=== PATIENT | female | born 1985 | race Caucasian/White ===

== ENCOUNTER 2018-02-17 13:11 | Emergency (ER) | payer BC ==
[2018-02-17 16:32] LABS: ABS Basophils 0.1 10^3/ul (0-0.2); ABS Eosinophils 0 10^3/ul (0-0.6); ABS Lymphocytes 2.4 10^3/ul (1.0-4.8); ABS Monocytes 0.6 10^3/ul (0-0.8); ABS Neutrophils 7.2 10^3/ul (1.5-7.7); ABS Nucleated RBC 0 10^3/ul; Eosinophil % 0.3 % (0-6); Hematocrit 40 % (35-47); Hemoglobin 13.8 g/dl (12.0-16.0); Lymphocyte % 23.1 % (25-47); Mean Corpuscular HGB Conc 34 g/dl (31-36); Mean Corpuscular Hemoglobin 30 pg (27-31); Mean Corpuscular Volume 87 fL (80-97); Mean Platelet Volume 8.6 um3 (7.4-10.4); Nucleated Red Blood Cells % 0.1; Platelet Count 315 10^3/ul (150-450); Red Blood Count 4.64 10^6/ul (4.00-5.40); Red Cell Distribution Width 13 % (10.5-15); White Blood Count 10.3 10^3/ul (3.5-10.8)
[2018-02-17 16:47] LABS: EGFR Non-African American 100.9 (>60)
--- NOTE | 2018-02-17 17:31 | ED ---
Throat Pain/Nasal Congestion - HPI Summary HPI Summary: Patient history of 4-7 weeks by home test, complains of vaginal spotting and intermittent lateral lower abdominal pain starting yesterday. Blood noticed when she is wiping after going to the bathroom, and some spotting on a pad. Denies fever, CP, SOB, vaginal discharge, vaginal pain , urinary symptoms, cough, sore throat. Has had no prior OB evaluation. Has appointment with midwives next month. History of irregular cycles. Medical history is PCO as. Abdominal/pelvic surgical history is none. - History of Current Complaint Chief Complaint: EDOBProblems Time Seen by Provider: 02/17/18 15:39 Hx Obtained From: Patient Onset/Duration: Gradual Onset Severity: Mild Associated Signs And Symptoms: Positive: Negative Cough: None - Allergies/Home Medications Allergies/Adverse Reactions: Allergies Allergy/AdvReac Type Severity Reaction Status Date / Time No Known Allergies Allergy Verified 02/17/18 15:25 Home Medications: Home Medications Metformin HCl 500 mg PO DAILY 02/17/18 [History Confirmed 02/17/18] PMH/Surg Hx/FS Hx/Imm Hx Endocrine/Hematology History: Denies: Hx Anticoagulant Therapy Cardiovascular History: Denies: Hx Cardiac Arrest History: Denies: Hx Dialysis Neurological History: Denies: Hx CVA Infectious Disease History: No Infectious Disease History: Denies: Traveled Outside the [place] in Last 30 Days - Social History Alcohol Use: None Substance Use Type: Reports: None Smoking Status (MU): Never Smoked Tobacco Review of Systems Constitutional: Negative Eyes: Negative ENT: Negative Cardiovascular: Negative Respiratory: Negative Positive: Abdominal Pain Positive: other Musculoskeletal: Negative Skin: Negative Neurological: Negative Positive: Anxious All Other Systems Reviewed And Are Negative: Yes Physical Exam Triage Information Reviewed: Yes Vital Signs On Initial Exam: Initial Vitals Temp Pulse Resp BP Pulse Ox 97.8 F 105 14 147/92 100 02/17/18 13:33 02/17/18 13:33 02/17/18 13:33 02/17/18 13:33 02/17/18 13:33 Vital Signs Reviewed: Yes Appearance: Positive: Well-Appearing Skin: Positive: Warm Head/Face: Positive: Normal Head/Face Inspection Eyes: Positive: Normal Neck: Positive: Supple Respiratory/Lung Sounds: Positive: Clear to Auscultation Cardiovascular: Positive: Normal Abdomen Description: Positive: Nontender Musculoskeletal: Positive: Normal Neurological: Positive: Normal Psychiatric: Positive: Normal AVPU Assessment: Alert - [place] Coma Scale Best Eye Response: 4 - Spontaneous Best Motor Response: 6 - Obeys Commands Best Verbal Response: 5 - Oriented Coma Scale Total: 15 Diagnostics - Vital Signs Vital Signs Temp Pulse Resp BP Pulse Ox 02/17/18 14:57 98.2 F 112 154/93 99 02/17/18 13:33 97.8 F 105 14 147/92 100 - Laboratory Lab Results: Lab Results 02/17/18 02/17/18 02/17/18 Range/Units 16:23 16:23 16:23 WBC 10.3 (3.5-10.8) 10^3/ul RBC 4.64 (4.00-5.40) 10^6/ul Hgb 13.8 (12.0-16.0) g/dl Hct 40 (35-47) % MCV 87 (80-97) fL MCH 30 (27-31) pg MCHC 34 (31-36) g/dl RDW 13 (10.5-15) % Plt Count 315 (150-450) 10^3/ul MPV 8.6 (7.4-10.4) um3 Neut % (Auto) 69.9 (38-83) % Lymph % (Auto) 23.1 L (25-47) % [place] % (Auto) 6.1 (0-7) % Eos % (Auto) 0.3 (0-6) % Baso % (Auto) 0.6 (0-2) % Absolute Neuts (auto) 7.2 (1.5-7.7) 10^3/ul Absolute Lymphs (auto) 2.4 (1.0-4.8) 10^3/ul Absolute Monos (auto) 0.6 (0-0.8) 10^3/ul Absolute Eos (auto) 0 (0-0.6) 10^3/ul Absolute Basos (auto) 0.1 (0-0.2) 10^3/ul Absolute Nucleated RBC 0 10^3/ul Nucleated RBC % 0.1 Sodium 138 (135-145) mmol/L Potassium 4.1 (3.5-5.0) mmol/L Chloride 103 (101-111) mmol/L Carbon Dioxide 24 (22-32) mmol/L Anion Gap 11 (2-11) mmol/L BUN 9 (6-24) mg/dL Creatinine 0.68 (0.51-0.95) mg/dL Est GFR ( Amer) 122.1 (>60) Est GFR (Non-Af Amer) 100.9 (>60) BUN/Creatinine Ratio 13.2 (8-20) Glucose 94 (70-100) mg/dL Calcium 9.7 (8.6-10.3) mg/dL Total Bilirubin 0.40 (0.2-1.0) mg/dL AST 19 (13-39) U/L ALT 28 (7-52) U/L Alkaline Phosphatase 54 (34-104) U/L C-Reactive Protein 6.24 (<8.01) mg/L Total Protein 7.8 (6.4-8.9) g/dL Albumin 4.6 (3.2-5.2) g/dL Globulin 3.2 (2-4) g/dL Albumin/Globulin Ratio 1.4 (1-3) Lipase 14 (11.0-82.0) U/L Beta HCG, Quant 23.39 mIU/mL Blood Type O Positive Result Diagrams: 02/17/18 16:23 02/17/18 16:23 Lab Statement: Any lab studies that have been ordered have been reviewed, and results considered in the medical decision making process. EENT Course/Dx - Course Course Of Treatment: Patient history of 4-7 weeks by home test, complains of vaginal spotting and intermittent lateral lower abdominal pain starting yesterday. Blood noticed when she is wiping after going to the bathroom, and some spotting on a pad. Denies fever, CP, SOB, vaginal discharge , vaginal pain, urinary symptoms, cough, sore throat. Has had no prior OB evaluation. Has appointment with midwives next month. History of irregular cycles. Medical history is PCO as. Abdominal/pelvic surgical history is none. HCG below 25. Likely miscarriage. No ultrasound performed. Patient advised to follow-up with machine shop worker. Return for any new or worsening symptoms - Diagnoses Provider Diagnoses: Incomplete miscarriage Discharge - Sign-Out/Discharge Documenting (check all that apply): Patient Departure - Discharge Plan Condition: Stable Disposition: HOME Patient Education Materials: Miscarriage (ED) Referrals: Jose Richey MD [Primary Care Provider] - Candelaria Gibson MD [Medical Doctor] - Additional Instructions: Follow-up with your machine shop worker and OPERATOR ASSISTANT I [employer] Dr Aviles if you do not have one. Return for any new or worsening symptoms. - Billing Disposition and Condition Condition: STABLE Disposition: Home
[2018-02-17 17:41] LABS: Urine Appearance Cloudy; Urine Blood 3+ (Negative); Urine Color Yellow; Urine Ketones 1+ (Negative); Urine Protein 1+(30 mg/dL) (Negative); Urine Red Blood Cell 3+(>10/hpf) (Absent); Urine Specific Gravity 1.019 (1.010-1.030); Urine Urobilinogen Negative (Negative); Urine White Blood Cell 2+(11-20/hpf) (Absent)
[2018-02-17 18:16] VITALS: BP 125/96
== END 2018-02-17 18:15 | disposition home or self-care (01) ==
LOC: ED 13:11
DX: O03.4 Incomplete spontaneous abortion without complication (principal)
CPT/HCPCS: 36415; 80053; 81003; 81015; 83690; 84702; 85025; 86140; 86900; 86901; 87086; 99282

== ENCOUNTER → 2018-06-18 17:49 | Emergency (ER) | payer OTHER ==
[~2018-06-18 17:49] MED LIST: Al Hydrox/Mg Hydrox/Simet LIQ* 30 ML UDC PO ONE; Iohexol 350* (CONTRAST) 500 ML MDV IV ONE; Lidocaine 2% VISCOUS* 15 ML UDC PO ONE
--- NOTE | 2018-06-18 18:23 | ED ---
HPI Chest Pain - HPI Summary HPI Summary: A 32 y/o F referred from [address] [place] [address] to r/o blood clot presents to ED with c/o mid -thoracic back pain that is radiating to her chest with initial onset last night , and continuing through today. Her BP was also elevated at . Associated sx: racing palpitations, mild dyspnea, feeling warm. Denies vomiting, dysuria, hematuria, appetite changes. She states eating has no effect on the CP. No recent travel. No blood clots in FHx. PMHx: PCOS. [facility]: recent. No cholecystectomy. PCP is Dr. Cruz. - History of Current Complaint Chief Complaint: EDChestPainROMI Time Seen by Provider: 06/18/18 18:18 Hx Obtained From: Patient Onset/Duration: Started Days Ago - last night, Atraumatic, Still Present Timing: Constant Initial Severity: Moderate Current Severity: Moderate Pain Intensity: 5 Pain Scale Used: 0-10 Numeric Character: Tightness Associated Signs and Symptoms: Positive: Palpitations, Other: - pos: elevated BP , mild dyspnea, feeling warm; neg: urinary sx, change in appetite. Negative: Vomiting - Allergy/Home Medications Allergies/Adverse Reactions: Allergies Allergy/AdvReac Type Severity Reaction Status Date / Time No Known Allergies Allergy Verified 06/18/18 17:53 PMH/Surg Hx/FS Hx/Imm Hx Previously Healthy: Yes Endocrine/Hematology History: Denies: Hx Anticoagulant Therapy Cardiovascular History: Denies: Hx Cardiac Arrest History: Denies: Hx Dialysis Neurological History: Denies: Hx CVA Infectious Disease History: No Infectious Disease History: Denies: Traveled Outside the [place] in Last 30 Days - Family History Family History: Neg: blood clots - Social History Occupation: Employed Full-time Lives: With Family Alcohol Use: Weekly Alcohol Amount: 1-2 drinks a week Hx Substance Use: No Substance Use Type: Reports: None Hx Tobacco Use: No Smoking Status (MU): Never Smoked Tobacco Review of Systems Positive: Other - pos: feels warm. Negative: Fever, Chills Negative: Erythema Negative: Sore Throat Positive: Palpitations, Chest Pain Positive: Other - pos: mild dyspnea. Negative: Shortness Of Breath, Cough Negative: Abdominal Pain, Vomiting, Nausea Negative: dysuria, hematuria Negative: Myalgia, Edema Negative: Rash Neurological: Other - neg: dizziness All Other Systems Reviewed And Are Negative: Yes Physical Exam - Summary Physical Exam Summary: Constitutional: Well-developed, Well-nourished, Alert. (-) Distressed Skin: Warm, Dry HENT: Normocephalic; Atraumatic Eyes: Conjunctiva normal Neck: Musculoskeletal ROM normal neck. (-) JVD, (-) Stridor, (-) Tracheal deviation Cardio: Rhythm regular, rate normal, Heart sounds normal; Intact distal pulses; The pedal pulses are 2+ and symmetric. Radial pulses are 2+ and symmetric. (-) Murmur. Unable to reproduce the pain. Pulmonary/Chest wall: Effort normal. (-) Respiratory distress, (-) Wheezes, (-) Rales Abd: Soft, (-) epigastric tenderness, (-) Distension, (-) Guarding, (-) Rebound. Musculoskeletal: (-) Edema Lymph: (-) Cervical adenopathy Neuro: Alert, Oriented x3 Psych: Mood and affect Normal Triage Information Reviewed: Yes Vital Signs On Initial Exam: Initial Vitals Temp Pulse Resp BP Pulse Ox 99.1 F 112 18 152/114 98 06/18/18 17:50 06/18/18 17:50 06/18/18 17:50 06/18/18 17:50 06/18/18 17:50 Vital Signs Reviewed: Yes Diagnostics - Vital Signs Vital Signs Temp Pulse Resp BP Pulse Ox 06/18/18 17:50 99.1 F 112 18 152/114 98 - Laboratory Result Diagrams: 06/18/18 19:22 06/18/18 19:22 Lab Statement: Any lab studies that have been ordered have been reviewed, and results considered in the medical decision making process. - Radiology CXR Radiology Interpretation Completed By: ED Physician Summary of Radiographic Findings: No acute dz. - EKG 1801 Cardiac Rate: NL - 99 bpm EKG Rhythm: Sinus Rhythm Summary of EKG Findings: no STEMI Chest Pain Course/Dx - Course Course Of Treatment: Pt is a healthy 32 y/o F sent from [address] [place] [address] to r/o blood clot presenting with constant, mid-thoracic back pain that is radiating to her chest with initial onset last night. Associated sx: racing palpitations, mild dyspnea, feeling warm. She states eating has no effect on the CP. EKG is NSR, no STEMI. CXR is unremarkable. Lab work is WNL. Pt will be signed out to Dr. Timmons at shift change pending CTA results. Discharge - Sign-Out/Discharge Documenting (check all that apply): Sign-Out Patient Signing out patient TO: Ana M Timmons - pending CTA result - Discharge Plan Referrals: Jose Richey MD [Primary Care Provider] - - Attestation Statements Document Initiated by Scribe: Yes Documenting Scribe: Alyson Soler Provider For Whom Scribe is Documenting (Include Credential): Dr. Guicho Gusman MD Scribe Attestation: I, Alyson Soler, scribed for Dr. Guicho Gusman MD on 06/18/18 at 2204.
[2018-06-18 19:30] LABS: ABS Basophils 0.1 10^3/ul (0-0.2); ABS Eosinophils 0 10^3/ul (0-0.6); ABS Monocytes 0.4 10^3/ul (0-0.8); ABS Neutrophils 3.9 10^3/ul (1.5-7.7); ABS Nucleated RBC 0 10^3/ul; Eosinophil % 0.5 % (0-6); Hematocrit 40 % (35-47); Hemoglobin 13.6 g/dl (12.0-16.0); Lymphocyte % 40.3 % (25-47); Mean Corpuscular HGB Conc 34 g/dl (31-36); Mean Corpuscular Hemoglobin 29 pg (27-31); Mean Corpuscular Volume 86 fL (80-97); Mean Platelet Volume 8.1 fL (7.4-10.4); Nucleated Red Blood Cells % 0.1; Platelet Count 316 10^3/ul (150-450); Red Blood Count 4.69 10^6/ul (4.00-5.40); Red Cell Distribution Width 14 % (10.5-15); White Blood Count 7.4 10^3/ul (3.5-10.8)
[2018-06-18 19:51] LABS: EGFR Non-African American 110.2 (>60)
--- NOTE | 2018-06-18 23:40 | ED ---
Progress - Progress Note Progress Note: Patient was signed out from Dr. Gusman to Dr. Timmons pending Chest/thorax CTA. The chest/thorax CTA impression was: No acute findings. No evidence for pulmonary embolus. ED physician has reviewed this imaging report. Re-Evaluation - Re-Evaluation First Eval Re-Evaluation Time: 23:50 Change: Unchanged Comment: Discussed with pt her negative CT and discharge instructions. Course/Dx - Course Course Of Treatment: Patient was signed out from Dr. Gusman to Dr. Timmons pending Chest/thorax CTA. The chest/thorax CTA impression was: No acute findings. No evidence for pulmonary embolus. She will be diagnosed with CP and discharged home. She was instructed to follow up with her PCP in 1-2 days. The patient is agreeable with this plan. - Diagnoses Provider Diagnoses: Chest pain Discharge - Sign-Out/Discharge Documenting (check all that apply): Patient Departure - DC, Receiving Sign-Out Receiving patient FROM: Guicho Gusman - Discharge Plan Condition: Stable Disposition: HOME Patient Education Materials: Chest Pain (ED) Referrals: Jose Richey MD [Primary Care Provider] - (1-2 days) Additional Instructions: RETURN TO THE EMERGENCY DEPARTMENT FOR CHANGING OR WORSENING SYMPTOMS. FOLLOW UP WITH PCP IN 1-2 DAYS. - Attestation Statements Document Initiated by Scribe: Yes Documenting Scribe: Lj Sweeney Provider For Whom Scribe is Documenting (Include Credential): Ana M Timmons MD Scribe Attestation: Lj Acosta, scribed for Ana M Timmons MD on 06/18/18 at 2356.
[2018-06-18 23:58] VITALS: BP 130/96
== END | disposition home or self-care (01) ==
LOC: ED 17:49
DX: R07.9 Chest pain, unspecified (principal); R00.2 Palpitations; M54.9 Dorsalgia, unspecified
CPT/HCPCS: 36415; 71046; 71275; 80053; 83605; 84484; 84702; 85025; 93005; 99284; A9270-GY; Q9967

== ENCOUNTER 2019-08-09 08:30 | Inpatient (IN) | payer OTHER ==
[2019-08-09] MEDS ORDERED: Lactated Ringers 1000 ML Bag* 1,000 ML IV ONE (09:36)
[2019-08-09] MEDS ORDERED: Misoprostol TAB* 100 MCG VAGINAL ONE (09:36)
[2019-08-09] MEDS ORDERED: Buffered Lidocaine 1% SYRIN* 1 ML/SYRINGE INTRADERM ONE (09:36)
--- NOTE | 2019-08-09 09:46 | HP ---
General Information - Reason for Visit 39 6/7 weeks, GDM A1, BMI 36. Admitted for induction of labor - General Information Maternal Age: 33 Grav: 3 Para: 0 SAB: 2 IEA: 0 Estimated Due Date: 08/10/19 Determined By: LMP Gestational Age in Weeks/Days: 39 6/7 Maternal Blood Type and Rh: O Positive - Results this Serology/RPR Result: Non-Reactive Rubella Result: Non-Immune HBsAg Result: Negative HIV Result: Negative GBS Culture Result: Negative Past Medical History Delivery History: See Records Pertinent Past Medical History: See Records Past Medical History Comment: Anxiety BMI 36 PCOS Pertinent Past Surgical History: See Records Pertinent Family History: See Records - Antepartal Records Antepartal Records: Reviewed, Complicated by: - BMI 36, GDM A1, macrosomia >90th %ile on 35+ week ultrasound Review of Systems Constitutional: Comfortable CV Complaint: No Respiratory: Shortness of Breath: No Gastrointestinal: No Nausea/Vomiting, Normal Bowel Movement Genitourinary: No Dysuria, No Bleeding, No Leaking Fluid Musculoskeletal: No Complaint, No Epigastric Pain Neurological: No Headache, No Visual Changes Movement: Normal Exam Allergies/Adverse Reactions: Allergies No Known Allergies Allergy (Verified 08/05/19 20:26) Temp 97 BP 129/92 P 90's RR 22 POx 100% RA - Measurements Height: 5 ft 4 in Weight: 215 lb Weight in lbs: [phone] Body Mass Index (BMI): 36.8 Pre- Weight: 210 lb Weight Gained This : 5 lbs and 0 ozs - Exam Breast: Breast Exam Deferred CVA: No CVA Tenderness Extremities: No Edema Heart: Normal Rhythm/Heart Sounds HEENT: No Significant Findings Lungs: Clear Bilaterally Rectal: Rectal Exam Deferred Reflexes: DTR 2+ - Abdominal Exam Abdomen Exam: Fundal Height Consistent with Dates - Ultrasound/Biophysical Profile Biophysical Profile: Normal Reactive NST Targeted Exam Findings See L&D Outpatient Visit Provider Note for Findings: N/A Cervical Exam: 1cm Effacement: 80% Station: -2 Presenting Part: Vertex Membrane Status: Intact Bleeding/Discharge: None EFM Findings - External Monitor Findings Baseline Heart Rate: 140 External Monitor Findings: Accelerations Present, No Pattern of Variable or Late Decelerations Contractions: None Assessment/Plan - Assessment Garcia score of 5, plan start with misoprostol cervical ripening prior to either induction or labor augmentation. - Obstetrical Risk Factors Obstetrical Risk Factors: Obesity, Gestational Diabetes, Psychiatric Issues - Anxiety - Plan Plan: Cervical Ripening, IV Hydration, Admit - Anticipate Vaginal Delivery - Date/Time of Admission Date of Admission: 08/09/19 Time of Admission: 09:00
[2019-08-09] MEDS ORDERED: Lactated Ringers 1000 ML Bag* 1,000 ML IV SCH (10:00)
[2019-08-09 11:54] LABS: ABS Basophils 0.1 10^3/ul (0-0.2); ABS Monocytes 0.5 10^3/ul (0-0.8); ABS Neutrophils 6.7 10^3/ul (1.5-7.7); Eosinophil % 0.3 %; Hematocrit 39 % (35-47); Hemoglobin 13.6 g/dL (12.0-16.0); Lymphocyte % 21.5 %; Mean Corpuscular HGB Conc 35 g/dL (31-36); Mean Corpuscular Hemoglobin 31 pg (27-31); Mean Corpuscular Volume 89 fL (80-97); Mean Platelet Volume 9.5 fL (7.4-10.4); Nucleated Red Blood Cells % 0.1; Platelet Count 213 10^3/uL (150-450); Red Blood Count 4.41 10^6 /uL (3.70-4.87); Red Cell Distribution Width 16 % (10-15); White Blood Count 9.3 10^3/uL (3.5-10.8)
[2019-08-09 12:12] LABS: Urine Benzodiazepine Screen None Detected (None Detect); Urine Opiates Screen None Detected (None Detect)
[2019-08-09] MEDS ORDERED: Oxytocin in LR* 20 UNITS/1,000 ML BAG IVPB SCH (16:00)
[2019-08-09] MEDS ORDERED: Morphine 10 MG/ML VIAL (1 ml) IV PRN (21:13)
[2019-08-09] MEDS ORDERED: Promethazine INJ(RESTRICTED)* 25 MG/ML 1 ML VIAL IV PRN (21:14)
[2019-08-10] MEDS ORDERED: Misoprostol TAB* 100 MCG VAGINAL ONE ×2 (09:47→15:17)
[2019-08-10] MEDS ORDERED: Misoprostol TAB* 100 MCG ONE (15:20)
[2019-08-11] MEDS ORDERED: Misoprostol TAB* 100 MCG VAGINAL ONE (07:21)
[2019-08-11] MEDS ORDERED: Oxytocin in LR* 20 UNITS/1,000 ML BAG IVPB SCH ×2 (11:00→20:00)
[2019-08-11] MEDS ORDERED: Acetaminophen TAB* 325 MG PO PRN (19:20)
[2019-08-11] MEDS ORDERED: oxyCODONE/Acetamin 5/325 MG* TAB PO PRN ×2 (19:20)
[2019-08-11] MEDS ORDERED: Glycerin ADULT SUPP PR PRN (19:20)
[2019-08-11] MEDS ORDERED: Ibuprofen TAB* 600 MG PO PRN (19:20)
[2019-08-11] MEDS ORDERED: Witch Hazel PAD* JAR TOPICAL PRN (19:20)
[2019-08-11] MEDS ORDERED: Dibucaine 1% 28.35 GM TUBE PR PRN (19:20)
[2019-08-11] MEDS ORDERED: Morphine PF AMP (0.5MG/ML)* 5 MG/10 ML AMP ONE (19:30)
[2019-08-11] MEDS ORDERED: Ondansetron INJ* 2 MG/ML VIAL ONE (19:30)
[2019-08-11] MEDS ORDERED: OXYTOCIN* 10 UNITS/ML 1 ML VIAL ONE (19:30)
[2019-08-11] MEDS ORDERED: Dexamethasone IV* 4 MG/ML 1 ML (4 MG) ONE (19:30)
[2019-08-11] MEDS ORDERED: ceFOXitin 2 GM IVPREMIX* 2 GM/50 ML BAG IVPB ONE (19:32)
[2019-08-11] MEDS ORDERED: Sodium Citrate/Citric Acid* 15 ML UDC ONE (19:39)
[2019-08-11] MEDS ORDERED: Sodium Citrate/Citric Acid* 15 ML UDC PO ONE (19:41)
[2019-08-11] MEDS ORDERED: Lactated Ringers 1000 ML Bag* 1,000 ML IV SCH (20:00)
[2019-08-11] MEDS ORDERED: EPHEDrine (Pressors)* 50 MG/ML VIAL ONE (20:13)
[2019-08-11] MEDS ORDERED: Carboprost Tromethamine* 250 MCG INJ ONE (20:23)
[2019-08-11] MEDS ORDERED: Naloxone* 0.4 MG/ML 1 ML VIAL IV PRN ×2 (20:33→20:34)
[2019-08-11] MEDS ORDERED: Ketorolac INJ* 30 MG/ML 1 ML VIAL IV PRN (20:33)
[2019-08-11] MEDS ORDERED: fentaNYL* 50 MCG/ML 2 ML VIAL (100 MCG VIAL) IV PRN (20:33)
[2019-08-11] MEDS ORDERED: PROCHLORPERAZINE INJ 5 MG/ML 2 ML VIAL IV PRN ×2 (20:33→20:34)
[2019-08-11] MEDS ORDERED: Acetaminophen IV 1GM/100ML * 1,000 MG/100 ML VIAL IVPB ONE (20:33)
[2019-08-11] MEDS ORDERED: oxyCODONE TAB* 5 MG TAB PO PRN ×2 (20:33→20:34)
[2019-08-11] MEDS ORDERED: Ondansetron INJ* 2 MG/ML VIAL IV PRN (20:34)
[2019-08-11] MEDS ORDERED: diPHENhydraMINE IV* 50 MG/ML 1 ml VIAL (BENADRYL) IV PRN (20:34)
[2019-08-11] MEDS ORDERED: Ketorolac INJ* 30 MG/ML 1 ML VIAL IV SCH (21:00)
[2019-08-11] MEDS: Docusate CAP* 100 MG PO SCH (23:34)
[2019-08-11] MEDS: Simethicone TAB* 80 MG TAB.CHEW PO SCH (23:34)
--- NOTE | 2019-08-11 23:37 | OP ---
DATE OF OPERATION: 08/11/19 - ROOM #105 DATE OF : 87 SURGEON: Nicole Betancourt MD. BARREL LATHE OPERATOR: Dr. Manny Alanis. ANESTHESIOLOGIST: Dr. Duran. ANESTHESIA: Spinal. PRE-OP DIAGNOSES: Intrauterine , 40 plus weeks, arrest of descent, arrest of dilation, and also A1 diabetes mellitus. POST-OP DIAGNOSES: Intrauterine , 40 plus weeks, arrest of descent, arrest of dilation, and also A1 diabetes mellitus, delivered. OPERATIVE PROCEDURE: Primary low-transverse section. ESTIMATED BLOOD LOSS: 700 cc. URINE OUTPUT: 100 cc of clear yellow urine. FLUIDS: 1400 cc of crystalloid. FINDINGS: Revealed vertex female infant, LOT, cord wrapped around body and right foot, normal appearing tubes and ovaries bilaterally, normal appearing placenta manually extracted, 3-vessel cord, normal uterine cavity without evidence of retained membranes or placental tissue. COMPLICATIONS: None apparent. DISPOSITION: Stable to recovery room. DESCRIPTION OF PROCEDURE: The patient was placed in dorsal lithotomy position. The abdomen was prepped and draped in a sterile standard fashion. Anesthesia was tested to appropriate level. Once identifying the patient with universal protocol, an incision was made 2 fingerbreadths above the pubic symphysis. This was carried down through the fascia. The fascia was scored in the midline , extended laterally and superiorly using Alva scissors. The peritoneum was then entered bluntly and extended bluntly. Bladder blade was inserted. Lower uterine segment was identified, tented up with an Allis. Incision was made with scalpel and this was carried down through to membranes. The incision was extended laterally and superiorly using May scissors. The infant was found to be non-engaged and LOT. Head was delivered. Body delivered. Right and left shoulder delivered and then cord around the body was reduced and cord around the foot was reduced. Cord was allowed to pulse for a minute and then the cord was clamped and cut and was handed off to awaiting shotblast operator. Appropriate cord blood was then obtained and placenta was then manually extracted. Uterus was wiped clean. Uterine cavity was wiped clean with moist laparotomy sponge, noted to be free of any membranes or placental tissue. Uterus was exteriorized, wrapped in warm, moist laparotomy sponge and hysterotomy site was reapproximated in 2 layers, first layer running locked, second layer running imbricated 0 Vicryl. Tubes and ovaries noted to have a normal appearance. Uterus was returned intraabdominally. Colic gutters were lavaged. Hemostasis assured at the hysterotomy site. The peritoneum was then reapproximated using 3-0 Vicryl in a running fashion. Subfascial area was visualized and noted to be hemostatic. The fascia was then reapproximated using 0-Vicryl x2 in a running fashion. Subcu was lavaged and hemostasis assured, and the Camper's fascia was reapproximated using 2-0 Vicryl in an interrupted fashion. The skin was then reapproximated with 4-0 Monocryl in a subcuticular fashion. Mastisol and Steri's were applied. All sponges, needle, instrument, and blade counts were correct throughout the case. The patient tolerated the procedure well and went to recovery room in stable condition. [id number]/[facility] #: [id number] [facility] WESTCHESTERRubina
[2019-08-12] MEDS: Acetaminophen TAB* 325 MG PO SCH ×2 (06:00→14:03)
[2019-08-12] MEDS: Ketorolac INJ* 30 MG/ML 1 ML VIAL IV SCH ×2 (06:00→12:02)
[2019-08-12 06:09] LABS: ABS Lymphocytes 1.8 10^3/ul (1.0-4.8); ABS Monocytes 0.7 10^3/ul (0-0.8); ABS Neutrophils 12.2 10^3/ul (1.5-7.7); Hematocrit 32 % (35-47); Hemoglobin 11.2 g/dL (12.0-16.0); Mean Corpuscular HGB Conc 35 g/dL (31-36); Mean Corpuscular Hemoglobin 31 pg (27-31); Mean Corpuscular Volume 89 fL (80-97); Mean Platelet Volume 9.4 fL (7.4-10.4); Platelet Count 176 10^3/uL (150-450); Red Blood Count 3.63 10^6 /uL (3.70-4.87); Red Cell Distribution Width 15 % (10-15); White Blood Count 14.8 10^3/uL (3.5-10.8)
[2019-08-12] MEDS: Docusate CAP* 100 MG PO SCH ×3 (08:49→20:36)
[2019-08-12] MEDS: Simethicone TAB* 80 MG TAB.CHEW PO SCH ×3 (08:49→18:19)
[2019-08-12] MEDS ORDERED: Ferrous Gluconate TAB* 324 MG TAB PO SCH (09:00)
[2019-08-12] MEDS ORDERED: Measles, Mumps,Rubella VACC* 0.5 ML/VIAL SUBCUT ONE (10:00)
[2019-08-12] MEDS ORDERED: Ibuprofen TAB* 600 MG ONE (18:14)
[2019-08-12] MEDS: Ibuprofen TAB* 600 MG PO PRN (18:18)
[2019-08-12] MEDS: Acetaminophen TAB* 325 MG PO PRN (20:36)
[2019-08-13] MEDS: Ibuprofen TAB* 600 MG PO PRN ×4 (00:38→20:55)
[2019-08-13] MEDS: Acetaminophen TAB* 325 MG PO PRN ×3 (00:39→12:08)
[2019-08-13] MEDS: Docusate CAP* 100 MG PO SCH ×3 (08:40→20:54)
[2019-08-13] MEDS: Simethicone TAB* 80 MG TAB.CHEW PO SCH ×4 (08:41→20:55)
[2019-08-13] MEDS ORDERED: Measles, Mumps,Rubella VACC* 0.5 ML/VIAL SUBCUT ONE (20:00)
[2019-08-14] MEDS: Ibuprofen TAB* 600 MG PO PRN ×2 (04:14→11:02)
[2019-08-14] MEDS: Simethicone TAB* 80 MG TAB.CHEW PO SCH (09:09)
[2019-08-14] MEDS: Docusate CAP* 100 MG PO SCH (09:09)
[2019-08-14 09:37] VITALS: BP 131/76
== END 2019-08-14 12:24 | disposition home or self-care (01) | DRG 788 ==
LOC: MCHOBOUT 08:30 → MCHOB 08:58
PROVIDERS: ADMIT Obstetrics & Gynecology; ATTEND Obstetrics & Gynecology
PROC: 3E033VJ Introduction of Other Hormone into Peripheral Vein, Percutaneous Approach (ICD-10-PCS; 2019-08-11)
PROC: 10907ZC Drainage of Amniotic Fluid, Therapeutic from Products of Conception, Via Natural or Artificial Opening (ICD-10-PCS; 2019-08-11)
PROC: 10D00Z1 Extraction of Products of Conception, Low, Open Approach (ICD-10-PCS; principal; 2019-08-11 19:50)
DX: O24.429 Gestational diabetes mellitus in childbirth, unspecified control (principal); O36.60X0 Maternal care for excessive fetal growth, unspecified trimester, not applicable or unspecified; O99.214 Obesity complicating childbirth; O32.4XX0 Maternal care for high head at term, not applicable or unspecified; O62.0 Primary inadequate contractions; O99.344 Other mental disorders complicating childbirth; F41.9 Anxiety disorder, unspecified; O48.0 Post-term pregnancy; O69.89X0 Labor and delivery complicated by other cord complications, not applicable or unspecified; Z3A.40 40 weeks gestation of pregnancy; Z37.0 Single live birth
CPT/HCPCS: 36415; 80307; 85025; 86850; 86900; 86901; 90707; A9270-GY; J0694; J1100; J1885; J2405; J2590; S0191